=== PATIENT | male | born 1980 | race Asian ===

== ENCOUNTER 2016-10-04 13:19 | Emergency (ER) | payer BC ==
[~2016-10-04] VITALS: Ht 170.2 cm; Wt 87.1 kg
[2016-10-04 16:00] LABS: BASOPHIL % 0.5 % (0-2); PLATELET COUNT 290 x10^3mcL (130-400); RED CELL DISTRIBUTION WIDTH 12.1 % (11.5-14.5)
[2016-10-04 16:03] LABS: CALCIUM 8.9 mg/dL (8.5-10.1); CARBON DIOXIDE 29.3 mmol/L (21-32); CHLORIDE SERUM 104 mmol/L (98-107); GFR1 > 60 mL/min; GLUCOSE SERUM 103 mg/dL (74-106); POTASSIUM SERUM 3.8 mmol/L (3.5-5.1); SODIUM SERUM 141 mmol/L (136-145)
[2016-10-04 16:08] LABS: ALBUMIN 4.5 g/dL (3.4-5.0); ALKALINE PHOSPHATASE 61 U/L (46-116); ALT/SGPT 52 U/L (16-63); AST/SGOT 23 U/L (15-37); BILIRUBIN TOTAL 0.6 mg/dL (0.20-1.00); TOTAL PROTEIN, SERUM 7.9 g/dL (6.4-8.2)
[2016-10-04 20:35] VITALS: BP 126/79
== END 2016-10-04 20:35 | disposition home or self-care (01) ==
LOC: ED 13:19
DX: R00.2 Palpitations (principal); I10 Essential (primary) hypertension; F41.9 Anxiety disorder, unspecified
CPT/HCPCS: 83880

== ENCOUNTER 2017-01-30 13:26 | Emergency (ER) | payer BC ==
[2017-01-30 16:53] LABS: BASOPHIL % 0.3 % (0-2); PLATELET COUNT 279 x10^3mcL (130-400); RED CELL DISTRIBUTION WIDTH 12.1 % (11.5-14.5)
[2017-01-30 16:58] LABS: CALCIUM 9.8 mg/dL (8.5-10.1); CARBON DIOXIDE 29.1 mmol/L (21-32); CHLORIDE SERUM 100 mmol/L (98-107); GFR1 > 60 mL/min; GLUCOSE SERUM 107 mg/dL (74-106); POTASSIUM SERUM 3.9 mmol/L (3.5-5.1); SODIUM SERUM 139 mmol/L (136-145)
[2017-01-30 17:09] LABS: ALBUMIN 4.7 g/dL (3.4-5.0); ALKALINE PHOSPHATASE 61 U/L (46-116); ALT/SGPT 48 U/L (16-63); AST/SGOT 22 U/L (15-37); BILIRUBIN TOTAL 0.75 mg/dL (0.20-1.00); LIPASE 109 IU/L (73-393); T4(THYROXINE) 9.4 ug/dL (4.7-13.3)
[2017-01-30 17:12] LABS: TOTAL PROTEIN, SERUM 8.7 g/dL (6.4-8.2)
[2017-01-30 18:35] VITALS: BP 142/89
== END 2017-01-30 18:35 | disposition home or self-care (01) ==
LOC: ED 13:26
PROVIDERS: Emergency Medicine
DX: R07.89 Other chest pain (principal); I10 Essential (primary) hypertension; E78.1 Pure hyperglyceridemia; F41.9 Anxiety disorder, unspecified; Z88.8 Allergy status to other drugs, medicaments and biological substances
CPT/HCPCS: 36415